=== PATIENT | female | born 1940 | race Caucasian/White ===

== ENCOUNTER 2017-06-13 21:58 | Inpatient (IN) | payer MEDICARE, MEDICAID ==
--- NOTE | 2017-06-13 22:40 | RAD ---
CHEST ONE VIEW 06/13/17 HISTORY: Dyspnea. COMPARISON: 10/20/15. FINDINGS: The cardiac silhouette is magnified by projection. Patient is rotated rightward. There is no lobar co nsolidation or evidence of pneumothorax. IMPRESSION: No active cardiopulmonary abnormalities are demonstrated. POS: RAYMONDH
[2017-06-13 23:19] LABS: #Lymphocytes 1.6 thou/uL (1.20-3.40); #Monocytes 0.9 thou/uL (0.11-0.59); #Neutrophils 14.7 thou/uL (1.40-6.50); %Basophils 0.2 % (0.0-1.0); %Eosinophils 0.1 % (0.0-10.0); %Lymphocytes 9.4 % (21.0-51.0); %Monocytes 5.2 % (0.0-10.0); %Neutrophils 85.1 % (42.0-75.0); Hemoglobin 16.6 g/dL (12.0-16.0); MDiff Complete? YES; Macrocytosis SLIGHT = 6-15 cells (100X) (0-5/hpf); Mean Corpuscular HGB CONC 29.7 g/dL (32.0-36.0); Mean Corpuscular Hemoglobin 29.6 pg (27.0-31.0); Mean Corpuscular Volume 99.9 fl (81.0-99.0); Mean Platelet Volume 9.7 fL (7.4-10.4); PLT Morphology Comment Appears Adequate; Platelet Count 199 thou/uL (130-400); RBC Distribution Width 13.5 % (11.5-14.5); White Blood Cell (WBC) Count 17.2 thou/uL (4.8-10.8)
[2017-06-13 23:28] LABS: CKMB 1.3 ng/mL (0-6.6); Troponin I 0.047 ng/mL (< 0.028)
[2017-06-13 23:40] LABS: ALT (SGPT) 27 U/L (8-55); AST (SGOT) 40 U/L (5-34); Albumin 3.1 g/dL (3.4-4.8); Alkaline Phosphatase 100 U/L (40-150); Anion Gap 14 mmol/L (10-20); BUN (Urea Nitrogen) 86 mg/dL (9.8-20.1); Bilirubin, Total 0.5 mg/dL (0.2-1.2); Calc. Creatinine Clearance 0 mL/min (70-130); Calcium 8.9 mg/dL (7.8-10.44); Carbon Dioxide 23 mmol/L (23-31); Chloride 134 mmol/L (98-107); Estimated GFR-MDRD 29; Globulin 3.6 g/dL (2.4-3.5); Glucose 460 mg/dL (83-110); Protein, Total 6.7 g/dL (6.0-8.3); Sodium 167 mmol/L (136-145)
[2017-06-13 23:40] LABS: Bilirubin Small (Negative); Blood, Urine Large (Negative); Clarity CLOUDY (Clear); Glucose, Urine (Dipstick) 250 mg/dL (Negative); Leukocyte Moderate (Negative); Nitrite Negative (Negative); Protein, Urine (Dipstick) 300 mg/dL (Neg-Trace); Specific Gravity, Urine 1.022 (1.002-1.036); pH, Urine 8.5 (5.0-9.0)
[2017-06-13 23:43] LABS: Bacteria/HPF 4+ HPF (None Seen); WBC/HPF 21-50 HPF (0-3)
[2017-06-13] MEDS ORDERED: Piperacillin/Tazobactam 4.5 GM in Sodium Chloride 0.9% 100 ML IVPB SCH (23:45)
[2017-06-13 23:59] LABS: Pathc Cast-AUWi Flag 4.78 (0-2.49); Yeast-AUWi Flag 194.3 (0-25.0)
[2017-06-14 00:08] LABS: Hyaline Casts/LPF 0-3 HYALINE CAST LPF (0-3 Hyaline); RBC/HPF 21-50 HPF (0-3)
[2017-06-14 00:09] LABS: Other Casts/LPF 0-3 FINELY GRAN LPF (0-3 Hyaline); Yeast-All Forms None Seen HPF (None Seen)
[2017-06-14 00:10] LABS: Manual Microscopic Reviewed? No Path Casts Seen
[2017-06-14 03:44] LABS: Lactic Acid 5.8 mmol/L (0.5-2.2)
[2017-06-14 06:12] LABS: Troponin I 0.053 ng/mL (< 0.028)
--- NOTE | 2017-06-14 06:51 | HP ---
DATE OF ADMISSION: 06/14/2017 PRIMARY CARE PROVIDER: Dr. Hayde Morris. CHIEF COMPLAINT: Shortness of breath. HISTORY OF PRESENT ILLNESS: This is a 77-year-old female who presents from [facility] in [place], [place] where she is a current resident with apparent complaints of shortness of br eath and lethargy. The patient cannot provide any coherent history due to severe dementia. History is obtained after review of [facility] records as well as discussions with the ER attending and ER reports. The patient was apparently diagnosed with a urinary tract infection at [facility] approximately a week prior to this evaluation and treated with oral antibiotics. The patient wit h a known history of urinary incontinence, nonambulatory status, advanced Parkinson's and dementia. The patient is also with a longstanding history of diabetes mellitus type 2. The patient presents wi th O2 saturations 95% on room air and en route was given intravenous normal saline x500 mL due to con cern for dehydration. In the emergency room, the patient underwent general evaluation including ches t imaging showing no acute infiltrate or pneumonia. Screening metabolic survey was revealing of rebecca re hypernatremia with sodium of 167, creatinine of 1.69, lactic acid level ranged between 2.3-5.8 and hyperglycemia with glucoses ranging in the 300-400 range. The patient was also noted with a white b lood cell count of 17,000 and urinalysis, likely with severe urinary tract infection with large leuko cyte esterase and blood. The patient received intravenous D5W at 60 mL an hour as well as normal zee ine x500 mL in addition to an insulin infusion at 5 units per hour, Zosyn and vancomycin. The patien t was referred to the Hospitalist Service for evaluation and admission. PAST MEDICAL HISTORY: 1. History of acute encephalopathy secondary to urinary tract infections. 2. Diabetes mellitus type 2. 3. Hypertension. 4. Seizure disorder. 5. Depression. 6. Coronary artery disease. 7. Advanced dementia. 8. Nonambulatory status. 9. Parkinson's disease. 10. Urinary incontinence. PAST SURGICAL HISTORY: 1. Status post cholecystectomy. 2. Status post hysterectomy. 3. Status post appendectomy. CURRENT MEDICATIONS: 1. Aspirin 81 mg 1 tab p.o. daily. 2. Coreg 3.125 mg p.o. daily. 3. Keppra 500 mg p.o. b.i.d. 4. Norvasc 5 mg 1 tab p.o. daily. 5. Simvastatin 10 mg p.o. daily. 6. Vitamin B complex 1 tablet p.o. daily. 7. Januvia 100 mg p.o. daily. 8. Sinemet 100/10 mg 1 tab p.o. t.i.d. 9. Cozaar 25 mg p.o. daily. 10. Zoloft 25 mg p.o. daily. ALLERGIES: 1. CODEINE. 2. PROCHLORPERAZINE. 3. SULFA. FAMILY HISTORY: No inheritable diseases per review of the records. SOCIAL HISTORY: Patient resides at [facility] in [place], [place]. . No alcohol, tobacco or illicit drug use. Nonambulatory status. REVIEW OF SYSTEMS: Unable to obtain due to patient's advanced dementia and nonverbal status. PHYSICAL EXAMINATION: VITAL SIGNS: On admission, blood pressure 120/88, pulse 89, respiratory rate 31, temperature 98.3 de grees rectally. O2 saturation 93% on room air. GENERAL APPEARANCE: This is a 77-year-old female appearing older than stated age, lethargi c, minimally responsive to verbal or painful stimuli with random movements of the extremities. HEENT: Pupils are equal, round, and reactive to light and accommodation. Extraocular muscles are in tact. The patient does not track. Nares patent. OP clear. Oral mucosa dry appearing. NECK: Supple, no cervical adenopathy, no thyromegaly, no carotid bruits, no JVD appreciated. No men ingeal signs appreciated. CHEST: Lungs are clear to auscultation bilaterally. CARDIOVASCULAR: S1, S2, without noted murmur. ABDOMEN: Flat, soft, nontender, nondistended. Bowel sounds are positive in all four quadrants. No palpable mass. No rebound or guarding appreciated. EXTREMITIES: Contractures in all extremities. Severe muscle atrophy globally. No skin breakdown or decubitus ulcers appreciated. Pulses diminished bilaterally at the dorsalis pedis, posterior tibial , and popliteal arteries bilaterally. Capillary refill 3 seconds. GENITOURINARY: Teague catheter in place with milky colored urine. NEUROLOGIC: Random movements of the extremities. Contractures in all extremities. Does not follow commands. Does not respond to verbal cues. Bed-bound. PERTINENT LABORATORY AND X-RAY FINDINGS: Sodium 167, potassium 4.0, chloride 134, CO2 of 23, BUN 86, creatinine 1.69, estimated GFR of 29, glucose 460. Lactic acid level ranged between 2.3-5.8, AST 40 , ALT of 27, total bilirubin 0.5, troponin 0.047, BNP 111. Albumin 3.1. CBC showed a white blood ce ll count of 17.2, hemoglobin 16.6, hematocrit 56, MCV 100, platelet count 199 with 85% neutrophilia. Urinalysis showed specific gravity 1.022, positive protein, glucose, large blood, moderate leukocyte esterase with 21-50 rbc's and wbc's per high powered field, 4+ bacteria. Portable chest x-ray date d 06/13/2017 showed no acute cardiopulmonary process. EKG dated 06/13/2017 by my interpretation show s sinus mechanism with heart rates in the 90s. Normal R-wave progression noted in the precordial jaxon ds. Left axis deviation. Premature ventricular contraction noted. ASSESSMENT AND PLAN: 1. Sepsis. Suspect secondary to urinary tract infection or urinary source. We will continue vancom ycin. We will continue vancomycin 1 gram IV q.12 hours with additional Rocephin 2 grams IV q.24 hour s. We will continue general sepsis protocol. Continue IV fluids as outlined previously due to sever e hypernatremia. Continue to monitor serial lactic acid level. We will admit to the Intermediate Ca re Unit for close monitoring. 2. Severe hypernatremia. We will continue D5 water at 100 mL per hour. Continue serial sodium lori toring. Repeat sodium level in the a.m. 3. Acute kidney injury secondary to severe dehydration. We will continue IV fluids as outlined prev iously. Avoid nephrotoxic agents and CONTRAST MEDIA. Repeat creatinine in the a.m. 4. Acute encephalopathy. Suspect secondarily to #1 and #2. We will continue general supportive mo sures and monitor clinical response. Unclear baseline functional and mental status. 5. Advanced dementia. Continue supportive measures. Treat acute process as outlined previously. W e will resume the outpatient medication regimen once clinically stabilizing. 6. Hyperglycemia in context of diabetes mellitus type 2. We will continue insulin infusion until th e patient is stabilizing. Titrate to clinical response. We will convert insulin sliding scale in th e next 24 hours. 7. Prophylaxis. Sequential compression devices while in bed. Pepcid 20 mg IV q.12 hours. Case man agement consult for disposition planning. Consult Speech Therapy for dysphagia screening. 9. Code status: DO NOT RESUSCITATE, confirmed with documentation from [facility]. Yael yanez medical decision maker is patient's spouse.
[2017-06-14] MEDS ORDERED: Ondansetron HCl/PF 4 MG/2 ML Vial IVP PRN (07:40)
[2017-06-14] MEDS ORDERED: Lorazepam 2 MG/ML VIAL SLOW IVP PRN (07:40)
[2017-06-14] MEDS ORDERED: Ondansetron ODT 4 MG TAB PO PRN (07:40)
[2017-06-14] MEDS ORDERED: Dextrose 5% in Water 1,000 ML IV PRN (07:40)
[2017-06-14] MEDS ORDERED: Dextrose 50% Abboject 50 ML SYRINGE SLOW IVP PRN (07:40)
[2017-06-14] MEDS ORDERED: HumaLOG 300 UNITS/3 ML VIAL SC PRN (07:40)
[2017-06-14] MEDS ORDERED: Acetaminophen 650 MG Suppository PR PRN (07:40)
[2017-06-14 07:51] VITALS: BMI 19.3
[2017-06-14] MEDS ORDERED: Famotidine/PF 20 mg/2ml Vial SLOW IVP SCH ×2 (09:00)
[2017-06-14] MEDS ORDERED: Vancomycin HCl 1 GM in Sodium Chloride 0.9% 250 ML 250 ML IVPB SCH (09:00)
[2017-06-14] MEDS ORDERED: Vancomycin HCl 1 GM in Premix Bag 1 BAG IVPB SCH ×2 (09:00→13:00)
[2017-06-14 09:29] LABS: ALT (SGPT) 28 U/L (8-55); AST (SGOT) 28 U/L (5-34); Alkaline Phosphatase 98 U/L (40-150); Anion Gap 17 mmol/L (10-20); BUN (Urea Nitrogen) 77 mg/dL (9.8-20.1); Bilirubin, Total 0.6 mg/dL (0.2-1.2); Calc. Creatinine Clearance 30 mL/min (70-130); Calcium 9.1 mg/dL (7.8-10.44); Carbon Dioxide 21 mmol/L (23-31); Chloride 133 mmol/L (98-107); Estimated GFR-MDRD 40; Globulin 3.8 g/dL (2.4-3.5); Glucose 139 mg/dL (83-110); Potassium 3.6 mmol/L (3.5-5.1); Protein, Total 6.8 g/dL (6.0-8.3); Sodium 167 mmol/L (136-145)
[2017-06-14 09:44] LABS: Band 7 % (5-11); Eosinophils 1 % (0-10); Hemoglobin 16.3 g/dL (12.0-16.0); Lymphocytes 10 % (21-51); MDiff Complete? YES; Mean Corpuscular HGB CONC 29.5 g/dL (32.0-36.0); Mean Corpuscular Hemoglobin 29.1 pg (27.0-31.0); Mean Corpuscular Volume 98.7 fl (81.0-99.0); Mean Platelet Volume 9.9 fL (7.4-10.4); Monocytes 7 % (0-10); Neutrophil 74 % (42-75); PLT Morphology Comment Appears Adequate; Platelet Count 173 thou/uL (130-400); RBC Distribution Width 13.5 % (11.5-14.5); Reactive Lymphocytes 1 % (0-10); Red Blood Cell (RBC) Count 5.59 mill/uL (4.20-5.40); Rouleaux Formation SLIGHT = 1-5 cells (100X) (None Seen); White Blood Cell (WBC) Count 19.5 thou/uL (4.8-10.8)
[2017-06-14] MEDS: Dextrose 5% in Water 1,000 ML IV SCH ×3 (12:51→22:20)
[2017-06-14] MEDS: cefTRIAXone\\ROCEPHIN 2 GM, Admixture Fee 1 EACH in Sodium Chloride 0.9% 100 ML IVPB SCH (12:57)
--- NOTE | 2017-06-14 13:10 | PDOC.PN ---
- Subjective Encounter Start Date: 06/14/17 Encounter Start Time: 12:00 Subjective: awake, not oriented -: not in distress - Objective Resuscitation Status: Resuscitation Status DNR:Do Not Resuscitate MAR Reviewed: Yes Vital Signs & Weight: Vital Signs (12 hours) Temp Pulse Resp BP Pulse Ox 06/14/17 12:00 97.9 F 70 24 H 135/64 99 06/14/17 08:08 97.0 F L 75 21 H 97 06/14/17 08:00 97.0 F L 75 21 H 116/57 L 94 L 06/14/17 07:51 97.0 F L 75 21 H 120/68 99 I&O: 06/13/17 06/14/17 06/15/17 06:59 06:59 06:59 Intake Total 102 Balance 102 Result Diagrams: 06/14/17 08:51 06/14/17 08:51 Additional Labs: Accuchecks 06/14/17 06/14/17 06/14/17 12:48 11:10 08:15 POC Glucose 93 136 H 168 H 06/14/17 06/14/17 06/14/17 07:43 06:05 04:29 POC Glucose 186 H 242 H 315 H 06/14/17 06/14/17 06/14/17 03:01 01:34 00:54 POC Glucose 245 H 412 H 388 H 06/14/17 00:18 POC Glucose 412 H Phys Exam - Physical Examination HEENT: PERRLA dry mucosa Neck: no JVD, supple Respiratory: no wheezing, no rales Cardiovascular: RRR, no significant murmur Gastrointestinal: soft, non-tender, positive bowel sounds Musculoskeletal: no edema, pulses present Neurological: non-focal, moves all 4 limbs Dx/Plan (1) Acute encephalopathy Code(s): G93.40 - ENCEPHALOPATHY, UNSPECIFIED Status: Acute (2) Severe dehydration Code(s): E86.0 - DEHYDRATION Status: Acute (3) DM (diabetes mellitus), type 2, uncontrolled Code(s): E11.65 - TYPE 2 DIABETES MELLITUS WITH HYPERGLYCEMIA Status: Acute Qualifiers: Diabetes mellitus complication status: with hyperglycemia Diabetes mellitus exterminator termite insulin use: without exterminator termite use Qualified Code(s): E11.65 - Type 2 diabetes mellitus with hyperglycemia (4) Sepsis Code(s): A41.9 - SEPSIS, UNSPECIFIED ORGANISM Status: Acute Qualifiers: Sepsis type: sepsis due to unspecified organism Qualified Code(s): A41.9 - Sepsis, unspecified organism (5) Acute hypernatremia Code(s): E87.0 - HYPEROSMOLALITY AND HYPERNATREMIA Status: Acute (6) Urinary tract infection Status: Acute Qualifiers: Urinary tract infection type: acute cystitis Hematuria presence: without hematuria Qualified Code(s): N30.00 - Acute cystitis without hematuria (7) Dyslipidemia Code(s): E78.5 - HYPERLIPIDEMIA, UNSPECIFIED Status: Chronic (8) Hypertension Code(s): I10 - ESSENTIAL (PRIMARY) HYPERTENSION Status: Chronic Qualifiers: Hypertension type: essential hypertension Qualified Code(s): I10 - Essential (primary) hypertension (9) Parkinson disease Code(s): G20 - PARKINSON'S DISEASE Status: Chronic (10) Seizure disorder Code(s): G40.909 - EPILEPSY, UNSP, NOT INTRACTABLE, WITHOUT STATUS EPILEPTICUS Status: Chronic (11) Dementia Code(s): F03.90 - UNSPECIFIED DEMENTIA WITHOUT BEHAVIORAL DISTURBANCE Status: Acute Qualifiers: Dementia type: unspecified type Dementia behavioral disturbance: with behavioral disturbance Qualified Code(s): F03.91 - Unspecified dementia with behavioral disturbance (12) KIKE (acute kidney injury) Code(s): N17.9 - ACUTE KIDNEY FAILURE, UNSPECIFIED Status: Acute - Plan is on ceftriaxone and van -: await cultures -: free water, iv aggressive hydration -: dc insulin drip, not sure what her baseline cognitive function, is a NH res -: d/w for multiple electrolyte abn with dehydration, kike * . Will tx to med floor in am ?palliative care if baseline cognition is poor. Review of Systems - Medications/Allergies Allergies/Adverse Reactions: Allergies Allergy/AdvReac Type Severity Reaction Status Date / Time codeine Allergy Unknown Verified 06/14/17 07:25 prochlorperazine Allergy Unknown Verified 06/14/17 07:25 Sulfa (Sulfonamide Allergy Unknown Verified 06/14/17 07:25 Antibiotics) Medications: Current Medications Acetaminophen (Tylenol) 650 mg DE Q4H PRN PRN Reason: Headache/Fever or Mild Pain Dextrose/Water (Dextrose 50%) 25 gm SLOW IVP PRN PRN PRN Reason: Hypoglycemia Famotidine (Pepcid) 20 mg SLOW IVP DAILY [facility] Last Admin: 06/14/17 12:57 Dose: 20 mg Glucagon (Glucagon) 1 mg IM PRN PRN PRN Reason: Hypoglycemia Ceftriaxone Sodium 2 gm/Miscellaneous Medication 1 each/ Sodium Chloride 100 mls @ 200 mls/hr IVPB Q24HR [facility] Last Admin: 06/14/17 12:57 Dose: 100 mls Dextrose/Water (D5w) 1,000 mls @ 0 mls/hr IV .Q0M PRN; As Directed PRN Reason: Hypoglycemia Dextrose/Water (D5w) 1,000 mls @ 100 mls/hr IV .Q10H [facility] Last Admin: 06/14/17 12:51 Dose: 1,000 mls Insulin Human Regular 100 (units/ Sodium Chloride) 101 mls @ 0 mls/hr IVPB INF [facility]; Titrate PRN Reason: Protocol Vancomycin HCl 1 gm/ Device 200 mls @ 200 mls/hr IVPB 0100,1300 [facility] Insulin Human Lispro (Humalog) 0 units SC .MODERATE SLIDING SC PRN PRN Reason: Moderate Correctional Scale Insulin Human Lispro (Humalog) 0 units SC .BEDTIME SLIDING SC PRN PRN Reason: Bedtime Correctional Scale Lorazepam (Ativan) 1 mg SLOW IVP Q4H PRN PRN Reason: Anxiety/Agitation Miscellaneous Medication (Pharmacy To Dose) 0 each IVPB ASDIR [facility]IN Ondansetron HCl (Zofran Odt) 4 mg PO Q6H PRN PRN Reason: Nausea/Vomiting Ondansetron HCl (Zofran) 4 mg IVP Q6H PRN PRN Reason: Nausea/Vomiting Pneumococcal 13-Valent Conj Vacc (Prevnar) 0.5 ml IM .ONCE ONE Stop: 06/14/17 21:01 Sodium Chloride (Flush - Normal Saline) 10 ml IVF Q12HR [facility] Last Admin: 06/14/17 12:57 Dose: 10 ml Sodium Chloride (Flush - Normal Saline) 10 ml IVF PRN PRN PRN Reason: Saline Flush
[2017-06-14 13:21] LABS: Lactic Acid 3.6 mmol/L (0.5-2.2)
[2017-06-14] MEDS ORDERED: Lactated Ringer's 1,000 ML IV SCH (15:45)
[2017-06-14 16:17] LABS: Anion Gap 12 mmol/L (10-20); BUN (Urea Nitrogen) 65 mg/dL (9.8-20.1); Calc. Creatinine Clearance 42 mL/min (70-130); Calcium 8.8 mg/dL (7.8-10.44); Carbon Dioxide 24 mmol/L (23-31); Chloride 129 mmol/L (98-107); Estimated GFR-MDRD 59; Glucose 212 mg/dL (83-110); Magnesium 2.4 mg/dL (1.6-2.6); Phosphorus 2.6 mg/dL (2.3-4.7); Potassium 3.3 mmol/L (3.5-5.1); Sodium 162 mmol/L (136-145)
--- NOTE | 2017-06-14 16:38 | CON ---
DATE OF CONSULTATION: 06/14/2017 SERVICE: Pulmonary Medicine. HISTORY OF PRESENT ILLNESS: The patient is a 77-year-old white female with past medical history significant for end-stage dementia. It is my understanding that she is bedbound at baseline and poorly verbal. She has decreasing access to water and nutrition. She presented to the hospital essentially with dehydration. She cannot provide any additional elements of the history. Otherwise, we have no reports of any infectious prodrome. PAST MEDICAL HISTORY: 1. Type 2 diabetes mellitus. 2. Hypertension. 3. Dyslipidemia. 4. Seizure disorder. 5. Parkinson's disease with dementia, advanced. 6. Debility with chronic bedbound status. 7. Urinary incontinence. 8. Coronary artery disease. PAST SURGICAL HISTORY: 1. Cholecystectomy. 2. Hysterectomy. 3. Appendectomy. ALLERGIES: CODEINE, SULFA and PROCHLORPERAZINE. FAMILY HISTORY: Noncontributory. SOCIAL HISTORY: The patient is a resident of [facility] in [place], [place]. She is . She has no access to alcohol, tobacco or illicit drug use. REVIEW OF SYSTEMS: Unable to obtain because of advanced dementia. PHYSICAL EXAMINATION: VITAL SIGNS: Afebrile, pulse 70, blood pressure 135/64, respirations 24, saturation 99% on room air. GENERAL: Patient is somnolent. She is protecting her airway, however. HEENT: Normocephalic, atraumatic. Sclerae are white, conjunctivae pink. Oral mucosa is dry. LUNGS: Excellent air entry. There is no prolonged expiratory phase, wheezing, rhonchi or crackles. HEART: Normal rate, regular. ABDOMEN: Soft, nontender, nondistended. Bowel sounds are positive. MUSCULOSKELETAL: No cyanosis or clubbing. There is no pitting in the bilateral lower extremities. She has got skin tenting throughout. GENITOURINARY: No Teague catheter. NEUROLOGIC: Grossly nonfocal. LABORATORY DATA: WBC 19.5, hemoglobin 16.3, platelets 173,000. Sodium 167 and stable. Chloride 133 and gently down trending. Potassium 3.4 and creatinine 1.29, which is already down trending. Anion gap is 17, bicarbonate 21. Liver function studies are essentially unremarkable. Lactate is down trending to 3.6. Blood sugars are ranging from 412 down to 93. Her white blood cells are 21-50, bilirubin is small, blood is large, and nitrites are negative. Leukocyte esterase is moderately positive. Urine culture is growing gram negative cherelle. Blood cultures negative x2 to date. IMAGING: Chest x-ray demonstrates no acute cardiopulmonary abnormality. ASSESSMENT: 1. Dehydration, severe. 2. Dementia, advanced. 3. Metabolic encephalopathy. 4. Hypernatremia. 5. Acute kidney injury, improving. 6. Systemic inflammatory response syndrome. 7. Urinary tract infection, possible. DISCUSSION AND PLAN: We will give her empiric antibiotics directed at pathology. Vancomycin will be discontinued altogether. I will give her a 2 liter bolus over 4 hours. We will continue D5 water after her intravascular space is restored. Potassium is currently 3.4 and will be corrected. Pulmonary or Critical Care will continue to follow while the patient remains in this location. Ultimately, the patient has an end-stage process. It is not clear to me exactly what the patient's baseline is, but I think a major part of her presentation to the hospital is her severe dehydration. Once this perch backup, we can get her back to her usual state, we will need to have some family conversations moving forward about the end-stage process of dementia. A Palliative Care consultation will be placed. 70 minutes have been devoted to this patient in various activities. I personally reviewed all imaging studies and laboratory data noted within this document. For greater than fifty percent of this time, I was interacting with the patient at the bedside or coordinating care with the care team. For the remainder of the time I was immediately available to the patient in the hospital unit. ERICK
[2017-06-14] MEDS: Potassium Chloride 40 MEQ in Sodium Chloride 0.9% 250 ML 250 ML IVPB SCH ×2 (17:14→20:31)
[2017-06-14] MEDS: HumaLOG 300 UNITS/3 ML VIAL SC PRN (17:16)
--- NOTE | 2017-06-14 18:32 | CON ---
DATE OF CONSULTATION: 06/14/2017 CONSULTING PHYSICIAN: Rachel Blackwood M.D. REQUESTING PHYSICIAN: Marizol Gimenez M.D. REASON FOR CONSULTATION: Severe hypernatremia. IMPRESSION: 1. Severe hypernatremia. This is in the context of excessive free water deficit. 2. Acute kidney injury related to intravascular depletion. 3. Hypokalemia. PLAN: 1. Replete potassium. 2. Aggressive free water resuscitation with monitoring of the sodium level. 3. Further management to be dependent on the clinical course. HISTORY OF PRESENT ILLNESS: History is that of a 77-year-old prison resident. I could not get much of any history from this patient. The patient was brought in and noted to be severely dehydrat ed with elevated sodium level of 167. As a result of this finding, decision has been taken to involv e Renal in the management of this case. PAST MEDICAL HISTORY: Significant for type 2 diabetes, hypertension, seizure disorder, depression, c oronary artery disease, advanced dementia, urinary incontinence. MEDICATIONS: Reviewed and as documented on [email or web address]. ALLERGIES: CODEINE, PROCHLORPERAZINE and SULFA. FAMILY HISTORY: Not significantly related to presenting illness. SOCIAL HISTORY: The patient is a resident at [facility]. No alcohol, no tobacco, no il licit drug use. REVIEW OF SYSTEMS: Unable to be obtained. PHYSICAL EXAMINATION: GENERAL: The patient was found to be severely dehydrated, noted with the following vital signs. VITAL SIGNS: Afebrile, temperature 97, pulse 75, respiratory rate 21, O2 sat 94% with blood pressure 100/57. HEENT: Remarkable for severe dry oral mucosa. NECK: Supple. CARDIOVASCULAR SYSTEM: First and second heart sounds were heard. RESPIRATORY SYSTEM: Clear to auscultation. DIGESTIVE SYSTEM: Revealed a benign abdomen with positive bowel sounds. EXTREMITIES: No peripheral edema. SKIN: No new gross rash. LYMPHATICS: No peripheral lymphadenopathy. SUMMARY: A 77-year-old prison resident who presented here severely dehydrated. Thank you for this consultation. We will follow with you.
[2017-06-14] MEDS ORDERED: Prevnar 13-Val Conj/PF 0.5 ML SYRINGE IM ONE (21:00)
[2017-06-15] MEDS: Potassium Chloride 40 MEQ in Sodium Chloride 0.9% 250 ML 250 ML IVPB SCH (02:30)
[2017-06-15 04:31] LABS: ALT (SGPT) 18 U/L (8-55); AST (SGOT) 14 U/L (5-34); Albumin 2.5 g/dL (3.4-4.8); Alkaline Phosphatase 89 U/L (40-150); Anion Gap 7 mmol/L (10-20); BUN (Urea Nitrogen) 50 mg/dL (9.8-20.1); Bilirubin, Total 0.5 mg/dL (0.2-1.2); Calc. Creatinine Clearance 47 mL/min (70-130); Calcium 8.4 mg/dL (7.8-10.44); Carbon Dioxide 24 mmol/L (23-31); Chloride 125 mmol/L (98-107); Estimated GFR-MDRD 68; Globulin 2.6 g/dL (2.4-3.5); Glucose 311 mg/dL (83-110); Potassium 3.7 mmol/L (3.5-5.1); Protein, Total 5.1 g/dL (6.0-8.3); Sodium 152 mmol/L (136-145)
[2017-06-15 04:38] LABS: Band 2 % (5-11); Eosinophils 1 % (0-10); Hemoglobin 13.6 g/dL (12.0-16.0); Lymphocytes 6 % (21-51); MDiff Complete? YES; Mean Corpuscular HGB CONC 30.8 g/dL (32.0-36.0); Mean Corpuscular Hemoglobin 29.9 pg (27.0-31.0); Mean Corpuscular Volume 96.9 fl (81.0-99.0); Mean Platelet Volume 9.6 fL (7.4-10.4); Monocytes 2 % (0-10); Neutrophil 89 % (42-75); Platelet Count 139 thou/uL (130-400); RBC Distribution Width 13.1 % (11.5-14.5); Red Blood Cell (RBC) Count 4.54 mill/uL (4.20-5.40); White Blood Cell (WBC) Count 15.7 thou/uL (4.8-10.8)
[2017-06-15] MEDS: HumaLOG 300 UNITS/3 ML VIAL SC PRN (06:04)
[2017-06-15] MEDS ORDERED: Sodium Chloride 0.9% 1,000 ML IV SCH (08:45)
[2017-06-15] MEDS: cefTRIAXone\\ROCEPHIN 2 GM, Admixture Fee 1 EACH in Sodium Chloride 0.9% 100 ML IVPB SCH (09:49)
--- NOTE | 2017-06-15 14:54 | PDOC.PN ---
- Subjective Encounter Start Date: 06/15/17 Encounter Start Time: 10:35 Subjective: is awake, not oriented -: not in distress, not sure if she is eating - Objective Resuscitation Status: Resuscitation Status DNR:Do Not Resuscitate MAR Reviewed: Yes Vital Signs & Weight: Vital Signs (12 hours) Temp Pulse Resp BP Pulse Ox 06/15/17 11:25 98.2 F 63 20 143/68 H 97 06/15/17 07:46 97.4 F L 62 20 94 L 06/15/17 07:18 97.4 F L 62 20 145/64 H 97 06/15/17 03:57 97 F L 70 18 133/56 L 97 Weight Admit Weight 112 lb 11.2 oz Weight 112 lb 11.2 oz I&O: 06/14/17 06/15/17 06/16/17 06:59 06:59 06:59 Intake Total 2324 Output Total 200 Balance 2124 Result Diagrams: 06/15/17 03:57 06/15/17 03:57 Additional Labs: Accuchecks 06/15/17 06/15/17 06/14/17 10:54 00:04 22:05 POC Glucose 198 H 259 H 268 H 06/14/17 06/14/17 06/14/17 20:27 16:44 15:30 POC Glucose 205 H 214 H 129 H Phys Exam - Physical Examination HEENT: PERRLA dry mucosa Neck: no JVD, supple Respiratory: no wheezing, no rales Cardiovascular: RRR, no significant murmur Gastrointestinal: soft, non-tender, positive bowel sounds Musculoskeletal: no edema, pulses present Neurological: non-focal, moves all 4 limbs Dx/Plan (1) Acute encephalopathy Code(s): G93.40 - ENCEPHALOPATHY, UNSPECIFIED Status: Acute (2) Severe dehydration Code(s): E86.0 - DEHYDRATION Status: Acute (3) DM (diabetes mellitus), type 2, uncontrolled Code(s): E11.65 - TYPE 2 DIABETES MELLITUS WITH HYPERGLYCEMIA Status: Acute Qualifiers: Diabetes mellitus complication status: with hyperglycemia Diabetes mellitus senior care insulin use: without director long term care use Qualified Code(s): E11.65 - Type 2 diabetes mellitus with hyperglycemia (4) Sepsis Code(s): A41.9 - SEPSIS, UNSPECIFIED ORGANISM Status: Acute Qualifiers: Sepsis type: sepsis due to unspecified organism Qualified Code(s): A41.9 - Sepsis, unspecified organism (5) Acute hypernatremia Code(s): E87.0 - HYPEROSMOLALITY AND HYPERNATREMIA Status: Acute (6) Urinary tract infection Status: Acute Qualifiers: Urinary tract infection type: acute cystitis Hematuria presence: without hematuria Qualified Code(s): N30.00 - Acute cystitis without hematuria (7) Dyslipidemia Code(s): E78.5 - HYPERLIPIDEMIA, UNSPECIFIED Status: Chronic (8) Hypertension Code(s): I10 - ESSENTIAL (PRIMARY) HYPERTENSION Status: Chronic Qualifiers: Hypertension type: essential hypertension Qualified Code(s): I10 - Essential (primary) hypertension (9) Parkinson disease Code(s): G20 - PARKINSON'S DISEASE Status: Chronic (10) Seizure disorder Code(s): G40.909 - EPILEPSY, UNSP, NOT INTRACTABLE, WITHOUT STATUS EPILEPTICUS Status: Chronic (11) Dementia Code(s): F03.90 - UNSPECIFIED DEMENTIA WITHOUT BEHAVIORAL DISTURBANCE Status: Acute Qualifiers: Dementia type: unspecified type Dementia behavioral disturbance: with behavioral disturbance Qualified Code(s): F03.91 - Unspecified dementia with behavioral disturbance (12) KIKE (acute kidney injury) Code(s): N17.9 - ACUTE KIDNEY FAILURE, UNSPECIFIED Status: Acute - Plan electrolytes are slowly getting better -: d/w palliative care, plan is for hospice at snf on discharge -: tx to medical floor -: change iv fluids to normal saline, serum glucose is 300+ -: on ceftriaxone for uti * . Review of Systems - Medications/Allergies Allergies/Adverse Reactions: Allergies Allergy/AdvReac Type Severity Reaction Status Date / Time codeine Allergy Unknown Verified 06/14/17 07:25 prochlorperazine Allergy Unknown Verified 06/14/17 07:25 Sulfa (Sulfonamide Allergy Unknown Verified 06/14/17 07:25 Antibiotics) Medications: Current Medications Acetaminophen (Tylenol) 650 mg CO Q4H PRN PRN Reason: Headache/Fever or Mild Pain Dextrose/Water (Dextrose 50%) 25 gm SLOW IVP PRN PRN PRN Reason: Hypoglycemia Glucagon (Glucagon) 1 mg IM PRN PRN PRN Reason: Hypoglycemia Ceftriaxone Sodium 2 gm/Miscellaneous Medication 1 each/ Sodium Chloride 100 mls @ 200 mls/hr IVPB Q24HR [facility] Last Admin: 06/15/17 09:49 Dose: 100 mls Dextrose/Water (D5w) 1,000 mls @ 0 mls/hr IV .Q0M PRN; As Directed PRN Reason: Hypoglycemia Sodium Chloride (1/2 Normal Saline) 1,000 mls @ 100 mls/hr IV .Q10H [facility] Insulin Human Lispro (Humalog) 0 units SC .MODERATE SLIDING SC PRN PRN Reason: Moderate Correctional Scale Last Admin: 06/15/17 06:04 Dose: 8 unit Insulin Human Lispro (Humalog) 0 units SC .BEDTIME SLIDING SC PRN PRN Reason: Bedtime Correctional Scale Last Admin: 06/14/17 22:18 Dose: 3 unit Ondansetron HCl (Zofran Odt) 4 mg PO Q6H PRN PRN Reason: Nausea/Vomiting Ondansetron HCl (Zofran) 4 mg IVP Q6H PRN PRN Reason: Nausea/Vomiting Sodium Chloride (Flush - Normal Saline) 10 ml IVF Q12HR [facility] Last Admin: 06/15/17 09:55 Dose: Not Given Sodium Chloride (Flush - Normal Saline) 10 ml IVF PRN PRN PRN Reason: Saline Flush
[2017-06-15 15:54] LABS: Anion Gap 10 mmol/L (10-20); BUN (Urea Nitrogen) 35 mg/dL (9.8-20.1); Calc. Creatinine Clearance 56 mL/min (70-130); Calcium 8.5 mg/dL (7.8-10.44); Carbon Dioxide 23 mmol/L (23-31); Estimated GFR-MDRD 83; Glucose 185 mg/dL (83-110); Potassium 4.2 mmol/L (3.5-5.1); Sodium 156 mmol/L (136-145)
[2017-06-15 15:59] LABS: Chloride 127 mmol/L (98-107)
--- NOTE | 2017-06-15 17:04 | PRG ---
DATE OF SERVICE: 06/15/2017 SERVICE: Pulmonary Medicine. INTERVAL HISTORY: The patient is doing fantastic from a respiratory standpoint. Cardiovascular, she is intact. There has been notable change to her condition. She remains essentially obtunded from e nd-stage dementia. OBJECTIVE: VITAL SIGNS: Afebrile since being here. Pulse 70, blood pressure 134/74, respirations 20, saturatio n 97% on room air. GENERAL: The patient is awake and alert. She can communicate or respond to me in a significant way. HEENT: Normocephalic, atraumatic. Sclerae are white, conjunctivae pink. Temporal wasting is presen t. HEART: Normal rate, regular. ABDOMEN: Soft, nontender, nondistended. Bowel sounds are positive. MUSCULOSKELETAL: No cyanosis or clubbing. No pitting in the bilateral lower extremities. LABORATORY DATA: WBC 15.7, hemoglobin 13.6, platelets 139,000. Sodium 152 and gently down trending, chloride 125 which is also moving in the right direction. Creatinine 0.82, resolved. BUN 50. Basi c metabolic profile is otherwise unremarkable. Liver function studies are unremarkable. Urinalysis is growing gram-negative cherelle and Enterococcus species. Blood cultures are growing coag-negative stap h. ASSESSMENT: 1. Dehydration, severe. 2. Dementia, advanced. 3. Metabolic encephalopathy, improved to baseline. 4. Hypernatremia, resolving. 5. Acute kidney injury, resolved. 6. Systemic inflammatory response syndrome, resolved. 7. Urinary tract infection, possible. DISCUSSION AND PLAN: From my perspective, she is stable for transition out of the [facility] to the medica l unit. Palliative Care consultation will need to be performed in order to help educate the patient' s family about the patient's end-stage process. The patient is extraordinarily likely to continue to have recurrent admissions for similar things. We will continue the antibiotics for the time being. The D5 water will also continue for the next 24 hours, but hopefully, we will be able to back off of this tomorrow. When she leaves the [facility], she will have no further requirements for inpatient Pulmon clive Critical Care opinion, and I will sign off. Please call with additional questions or concerns.
[2017-06-15] MEDS: Sodium Chloride 0.45% 1,000 ML IV SCH (17:14)
--- NOTE | 2017-06-15 22:09 | PRG ---
DATE OF SERVICE: 06/15/2017 SUBJECTIVE: Patient seen and examined noted with the following vital signs. OBJECTIVE: VITAL SIGNS: Afebrile with temperature 97.9, pulse 72, respiratory rate of 16, O2 sat 100% with bloo d pressure 170/71. HEENT: Unremarkable with moist oral mucosa. NECK: Supple, no conjunctival injection or icterus. CARDIOVASCULAR SYSTEM: First and second heart sounds were heard. RESPIRATORY SYSTEM: Clear to auscultation. DIGESTIVE SYSTEM: Revealed a benign abdomen with positive bowel sounds. EXTREMITIES: No peripheral edema. SKIN: No new gross rash. LYMPHATICS: No peripheral lymphadenopathy. LABORATORY INVESTIGATION: Showed a sodium of 152, potassium of less than 3.7, chloride 125. IMPRESSION: 1. Hyponatremia in the context of severe water deficit. 2. Acute kidney injury, which seems to have resolved, status post rehydration. 3. Advanced age. PLAN: 1. Patient to continue with free-water repletion. 2. Further management to be dependent on the clinical course.
[2017-06-16] MEDS: Sodium Chloride 0.45% 1,000 ML IV SCH (06:32)
[2017-06-16 06:36] LABS: Anion Gap 11 mmol/L (10-20); BUN (Urea Nitrogen) 26 mg/dL (9.8-20.1); Calc. Creatinine Clearance 61 mL/min (70-130); Calcium 8.2 mg/dL (7.8-10.44); Carbon Dioxide 20 mmol/L (23-31); Chloride 124 mmol/L (98-107); Estimated GFR-MDRD Greater than 90; Glucose 211 mg/dL (83-110); Magnesium 1.8 mg/dL (1.6-2.6); Phosphorus 2.6 mg/dL (2.3-4.7); Potassium 3.9 mmol/L (3.5-5.1); Sodium 151 mmol/L (136-145)
[2017-06-16] MEDS: cefTRIAXone\\ROCEPHIN 2 GM, Admixture Fee 1 EACH in Sodium Chloride 0.9% 100 ML IVPB SCH (08:25)
[2017-06-16] MEDS: HumaLOG 300 UNITS/3 ML VIAL SC PRN (12:11)
[2017-06-16 12:22] VITALS: BP 187/89; TEMP 97.6
--- NOTE | 2017-06-16 19:45 | PDOC.PN ---
- Subjective Encounter Start Date: 06/16/17 Encounter Start Time: 07:35 Subjective: awake, not oriented -: is eating poorly - Objective Resuscitation Status: Resuscitation Status DNR:Do Not Resuscitate MAR Reviewed: Yes Vital Signs & Weight: Vital Signs (12 hours) Temp Pulse Resp BP Pulse Ox 06/16/17 12:00 97.6 F 90 22 H 187/89 H 06/16/17 08:00 97.7 F 67 24 H 100 06/16/17 07:50 97.7 F 67 24 H 168/77 H 100 Weight Admit Weight 112 lb 11.2 oz Weight 112 lb 11.2 oz I&O: 06/15/17 06/16/17 06/17/17 06:59 06:59 06:59 Intake Total 2324 720 Output Total 200 700 Balance 2124 20 Result Diagrams: 06/15/17 03:57 06/16/17 05:42 Additional Labs: Accuchecks 06/16/17 06/16/17 11:32 05:13 POC Glucose 214 H 176 H Phys Exam - Physical Examination HEENT: PERRLA, sclera anicteric Neck: no JVD, supple Respiratory: no wheezing, no rales Cardiovascular: RRR, no significant murmur Gastrointestinal: soft, non-tender, positive bowel sounds Musculoskeletal: no edema, pulses present Neurological: non-focal, moves all 4 limbs Dx/Plan (1) Acute encephalopathy Code(s): G93.40 - ENCEPHALOPATHY, UNSPECIFIED Status: Acute (2) Severe dehydration Code(s): E86.0 - DEHYDRATION Status: Acute (3) DM (diabetes mellitus), type 2, uncontrolled Code(s): E11.65 - TYPE 2 DIABETES MELLITUS WITH HYPERGLYCEMIA Status: Acute Qualifiers: Diabetes mellitus complication status: with hyperglycemia Diabetes mellitus marine oil terminal superintendent insulin use: without marine oil terminal superintendent use Qualified Code(s): E11.65 - Type 2 diabetes mellitus with hyperglycemia (4) Sepsis Code(s): A41.9 - SEPSIS, UNSPECIFIED ORGANISM Status: Acute Qualifiers: Sepsis type: sepsis due to unspecified organism Qualified Code(s): A41.9 - Sepsis, unspecified organism (5) Acute hypernatremia Code(s): E87.0 - HYPEROSMOLALITY AND HYPERNATREMIA Status: Acute (6) Urinary tract infection Status: Acute Qualifiers: Urinary tract infection type: acute cystitis Hematuria presence: without hematuria Qualified Code(s): N30.00 - Acute cystitis without hematuria (7) Dyslipidemia Code(s): E78.5 - HYPERLIPIDEMIA, UNSPECIFIED Status: Chronic (8) Hypertension Code(s): I10 - ESSENTIAL (PRIMARY) HYPERTENSION Status: Chronic Qualifiers: Hypertension type: essential hypertension Qualified Code(s): I10 - Essential (primary) hypertension (9) Parkinson disease Code(s): G20 - PARKINSON'S DISEASE Status: Chronic (10) Seizure disorder Code(s): G40.909 - EPILEPSY, UNSP, NOT INTRACTABLE, WITHOUT STATUS EPILEPTICUS Status: Chronic (11) Dementia Code(s): F03.90 - UNSPECIFIED DEMENTIA WITHOUT BEHAVIORAL DISTURBANCE Status: Acute Qualifiers: Dementia type: unspecified type Dementia behavioral disturbance: with behavioral disturbance Qualified Code(s): F03.91 - Unspecified dementia with behavioral disturbance (12) KIKE (acute kidney injury) Code(s): N17.9 - ACUTE KIDNEY FAILURE, UNSPECIFIED Status: Acute - Plan pt has advanced dementia and likely above events will recur -: family have opted for hospice at snf -: dc pt to snf -: poor prognosis * .
--- NOTE | 2017-06-17 03:55 | DIS ---
DATE OF ADMISSION: 06/14/2017 DATE OF DISCHARGE: 06/16/2017 DISCHARGE DISPOSITION: To inpatient hospice at her [facility]. PRIMARY DISCHARGE DIAGNOSES: Acute encephalopathy with severe dehydration and multiple electrolyte a bnormalities including hypernatremia, hyperchloremia and acute kidney injury; sepsis with urinary tra ct infection; diabetes mellitus type 2, uncontrolled. SECONDARY DISCHARGE DIAGNOSES: Hypertension, dyslipidemia, advanced dementia, Parkinson's disease, s eizure disorder. PROCEDURES DONE DURING HOSPITALIZATION: Chest x-ray done showed no acute infiltrate. Urine culture grew Proteus mirabilis and Enterococcus sensitive to Augmentin. Had a white count of 17 with 85% patricia trophils. Discharge BUN and creatinine are 26 and 0.6. Discharge sodium levels are 151. Discharge serum bicarbonate is 20. Albumin was 2.5. Had initial sodium of 167 with chloride of 134, BUN of 86 and creatinine of 1.6 on the day of admission. Serum glucose was 460 on the day of admission. DISCHARGE MEDICATIONS: Norvasc 5 mg p.o. daily, Augmentin 500/125 mg p.o. 1 tab twice daily for anot her 5 days, Sinemet 10/100 mg 1 tablet p.o. 3 times daily, Coreg 3.125 mg p.o. daily, vitamin B12 of 1000 mcg p.o. daily, Keppra 500 mg p.o. twice daily, sertraline 25 mg p.o. daily. ALLERGIES: SULFA, PROCHLORPERAZINE and CODEINE. INPATIENT CONSULTS: Dr. Edwards for Critical Care and Pulmonology, Dr. Ramos for Nephrology. BRIEF COURSE DURING HOSPITALIZATION: The patient initially got admitted on the after she was se nt from [facility] in [place] for complaints of shortness of breath and lethargy. The pa tient was severely dehydrated with multiple electrolyte abnormalities, acute kidney injury and uncont rolled diabetes. She was also suspicious for sepsis and urinary tract infection. She was initially placed to IMCU and was aggressively hydrated. The patient responded to above measures. The patient has advanced dementia and has been gradually declining. In view of possible recurrence of similar is michelet, Palliative Care consultation was requested. Family have opted for hospice at the correction a nd will be shortly discharged back to [facility]. A total of 35 minutes was spent on discharge plan. Please see a [id number] documentation on [facility] for the day of discharge. Please note, the patient does not interact much with the examiner and h as advanced dementia.
--- NOTE | 2017-06-17 13:25 | EKG ---
Test Reason : Blood Pressure : / mmHG Vent. Rate : 096 BPM Atrial Rate : 096 BPM P-R Int : 080 ms QRS Dur : 060 ms QT Int : 488 ms P-R-T Axes : 009 -26 074 degrees QTc Int : 616 ms Sinus rhythm with short [place] with Premature supraventricular complexes Abnormal ECG Confirmed by AISSATOU GALLARDO, HORACE ([id number]), editorial specialist BLAZE PACHECO ([id number]) on 06/17/2017 1:25:06 PM Referred By: Confirmed By:HORACE REYEZ MD
== END 2017-06-16 12:25 | disposition hospice, inpatient (51) | DRG 871 ==
LOC: ERS 21:58 → ERHOLD 06-14 00:03 → IMCU/EMU 06-14 07:46 → ONC 06-15 16:11
PROVIDERS: ADMIT Family Medicine; ATTEND Family Medicine
DX: A41.9 Sepsis, unspecified organism (principal); G93.41 Metabolic encephalopathy; N17.9 Acute kidney failure, unspecified; E87.0 Hyperosmolality and hypernatremia; N30.00 Acute cystitis without hematuria; E86.0 Dehydration; F03.90 Unspecified dementia, unspecified severity, without behavioral disturbance, psychotic disturbance, mood disturbance, and anxiety; E11.65 Type 2 diabetes mellitus with hyperglycemia; Z66 Do not resuscitate; I10 Essential (primary) hypertension; G40.909 Epilepsy, unspecified, not intractable, without status epilepticus; F32.9 Major depressive disorder, single episode, unspecified; I25.10 Atherosclerotic heart disease of native coronary artery without angina pectoris; G20 Parkinson's disease; R32 Unspecified urinary incontinence; E87.6 Hypokalemia; B96.4 Proteus (mirabilis) (morganii) as the cause of diseases classified elsewhere; R65.20 Severe sepsis without septic shock; B95.2 Enterococcus as the cause of diseases classified elsewhere; Z74.01 Bed confinement status; Z88.5 Allergy status to narcotic agent; Z88.2 Allergy status to sulfonamides; Z88.8 Allergy status to other drugs, medicaments and biological substances; Z79.82 Long term (current) use of aspirin; Z79.899 Other long term (current) drug therapy
CPT/HCPCS: 36415; 36416; 51701; 71045; 80048; 80053; 81003; 81015; 82553; 83605; 83735; 83880; 84100; 84484; 85007; 85025; 85027; 87040; 87077; 87086; 87149; 87186; 93005; 96365; 96366; 96367; A4353; G8996-GN-CN; G8997-GN-CL; J0696; J1815; J2543; J3370; J3480; J7050